=== PATIENT | male | born 1995 | race African-American/Black ===

== ENCOUNTER 2019-03-24 18:34 | Emergency (ER) | payer OTHER ==
[2019-03-24] MEDS ORDERED: ALBUTEROL SO4 2.5/IPRATROPIUM 0.5 INH SOL 3 ML VIAL.NEB. NEB ONE ×4 (18:39→19:39)
--- NOTE | 2019-03-24 18:39 | PDOC ---
Rapid Medical Evaluation Time Seen by Provider: 03/24/19 18:37 Medical Evaluation: Allergies Allergy/AdvReac Type Severity Reaction Status Date / Time No Known Allergies Allergy Verified 08/24/15 23:30 03/24/19 18:37 I have performed a brief in-person evaluation of this patient. The patient presents with a chief complaint of: chest tightness Pertinent physical exam findings: Lungs CTAB. Sternum TTP. I have ordered the following: cxr, duonebs The patient will proceed to the ED for further evaluation. Discharge Disposition - Diagnosis Chest tightness - Referrals - Patient Instructions - Post Discharge Activity
[2019-03-24 18:41] VITALS: BP 158/81; PULSE 70; TEMP 97.9; BMI 19.1
--- NOTE | 2019-03-24 19:37 | PDOC ---
History of Present Illness - General Chief Complaint: Shortness of Breath Stated Complaint: NAUSEA/ASTHMATIC Time Seen by Provider: 03/24/19 18:37 History Source: Patient - History of Present Illness Initial Comments: 03/24/19 20:27 23-year-old male with history of asthma complaining of wheezing and chest tightness for 1 day. Patient reports that he has some asthma nebulizer is broken so patient was unable to get full dosing of medication at home. Denies hospitalization for asthma. Reports multiple visits to ER for asthma exacerbation.denies fevers/chills, chest pain, nausea, vomiting 03/24/19 20:30 Past History - Past Medical History Allergies/Adverse Reactions: Allergies Allergy/AdvReac Type Severity Reaction Status Date / Time No Known Allergies Allergy Verified 03/24/19 18:37 Home Medications: Ambulatory Orders Albuterol 0.083% Nebulizer Preeti [Ventolin 0.083% Nebulizer Soln -] 1 neb NEB Q6H PRN #25 vial 03/24/19 Prednisone [Deltasone] 40 mg PO DAILY #10 tablet 03/24/19 COPD: No - Immunization History Immunization Up to Date: Yes - Suicide/Smoking/Psychosocial Hx Smoking History: Never smoked Hx Alcohol Use: No Drug/Substance Use Hx: No Review of Systems - Review of Systems Able to Perform ROS?: Yes Is the patient limited Bahamian proficient: No Constitutional: No: Symptoms Reported, See HPI, Chills, Diaphoresis, Fever, Loss of Appetite, Malaise, Night Sweats, Weakness, Weight Stable, Unintentional Wgt. Loss, Unexplained wgt Loss, Other Respiratory: Yes: Cough, Wheezing. No: Symptoms reported, See HPI, Orthopnea, Shortness of Breath, SOB with Exertion, SOB at Rest, Stridor, Productive cough, Hemoptysis, Other Cardiac (ROS): Yes: Chest Tightness. No: Symptoms Reported, See HPI, Chest Pain , Edema, Irregular Heart Rate, Lightheadedness, Palpitations, Syncope, Other ABD/GI: No: Symptoms Reported, See HPI, Abdominal Distended, Abd. Pain w/ defecation, Blood Streaked Bowels, Constipated, Diarrhea, Difficulty Swallowing , Nausea, Poor Appetite, Poor Fluid Intake, Rectal Bleeding, Vomiting, Indigestion, Abdominal cramping, Tarry Stools, Other *Physical Exam - Vital Signs Last Vital Signs Temp Pulse Resp BP Pulse Ox 97.9 F 70 18 158/81 98 03/24/19 18:38 03/24/19 18:38 03/24/19 18:38 03/24/19 18:38 03/24/19 18:38 - Physical Exam General Appearance: Yes: Appropriately Dressed Respiratory/Chest: positive: Lungs Clear, Normal Breath Sounds. negative: Wheezing Cardiovascular: positive: Regular Rhythm, Regular Rate Gastrointestinal/Abdominal: positive: Normal Bowel Sounds, Soft Integumentary: positive: Normal Color, Dry, Warm Neurologic: positive: Fully Oriented, Alert, Normal Mood/Affect ED Treatment Course - Medications Given in the ED: ED Medications Discontinued Medications Generic Name Dose Route Start Last Admin Trade Name Freq PRN Reason Stop Dose Admin Albuterol/Ipratropium 1 amp 03/24/19 18:39 03/24/19 19:20 Duoneb - NEB 03/24/19 18:40 1 amp ONCE ONE Administration Progress Note - Progress Note Progress Note: A: asthma exacerbation P: duoneb prednisone Medical Decision Making - Medical Decision Making 03/24/19 20:34 patient now feeling better.No wheezing or chest tightness. Will DC home.Extra tubing was given to the patient to replace broken tubing at home. *DC/Admit/Observation/Transfer Diagnosis at time of Disposition: Asthma exacerbation, mild - Discharge Dispostion Disposition: HOME Condition at time of disposition: Stable - Prescriptions Prescriptions: Albuterol 0.083% Nebulizer Preeti [Ventolin 0.083% Nebulizer Soln -] 1 neb NEB Q6H PRN #25 vial PRN Reason: Asthma Prednisone [Deltasone] 40 mg PO DAILY #10 tablet - Referrals Referrals: Winifred Alvarado MD [Primary Care Provider] - - Patient Instructions Printed Discharge Instructions: Asthma -- Adult Additional Instructions: use albuterol every 4 hours as needed for cough and wheezing. take prednisone starting tomorrow your first dose was given this evening. follow-up with your doctor as soon as possible. - Post Discharge Activity Forms/Work/School Notes: Back to Work
[2019-03-24] MEDS ORDERED: predniSONE 20 MG TABLET (UD) PO ONE (19:38)
--- NOTE | 2019-03-24 19:38 | PDOC ---
*Physical Exam - Vital Signs Last Vital Signs Temp Pulse Resp BP Pulse Ox 97.9 F 70 18 158/81 98 03/24/19 18:38 03/24/19 18:38 03/24/19 18:38 03/24/19 18:38 03/24/19 18:38 ED Treatment Course - Medications Given in the ED: ED Medications Discontinued Medications Generic Name Dose Route Start Last Admin Trade Name Freq PRN Reason Stop Dose Admin Albuterol/Ipratropium 1 amp 03/24/19 18:39 03/24/19 19:20 Duoneb - NEB 03/24/19 18:40 1 amp ONCE ONE Administration Medical Decision Making - Medical Decision Making 03/24/19 19:38 Patient seen by the advanced practice provider under my direct supervision. Ancillary testing reviewed as necessary. I agree with plan as outlined by the advanced practice provider. *DC/Admit/Observation/Transfer Diagnosis at time of Disposition: Chest tightness - Referrals Referrals: Winifred Alvarado MD [Primary Care Provider] - - Patient Instructions - Post Discharge Activity
[2019-03-24] MEDS ORDERED: predniSONE 20 MG TABLET (UD) ONE (19:39)
--- NOTE | 2019-03-25 08:27 | EKG ---
Test Reason : Blood Pressure : / mmHG Vent. Rate : 065 BPM Atrial Rate : 065 BPM P-R Int : 128 ms QRS Dur : 096 ms QT Int : 400 ms P-R-T Axes : 063 069 069 degrees QTc Int : 416 ms NORMAL SINUS RHYTHM NORMAL ECG NO PREVIOUS ECGS AVAILABLE Confirmed by ZURI ULLOA, BLAIRE ([id number]) on 03/25/2019 8:27:21 AM Referred By: Confirmed By:BLAIRE KEATING MD
== END 2019-03-24 20:42 | disposition home or self-care (01) ==
LOC: JER 18:34
PROC: 3E0F7GC Introduction of Other Therapeutic Substance into Respiratory Tract, Via Natural or Artificial Opening (ICD-10-PCS; principal; 2019-03-24)
PROC: 3E0F7GC Introduction of Other Therapeutic Substance into Respiratory Tract, Via Natural or Artificial Opening (ICD-10-PCS; 2019-03-24)
DX: J45.21 Mild intermittent asthma with (acute) exacerbation (principal)
CPT/HCPCS: 71046-TC-FY; 93005; 93010; 99282-25